=== PATIENT | female | born 1945 | race Caucasian/White ===

== ENCOUNTER → 2018-04-23 | Outpatient (CLI) | payer OTHER ==
[~2018-04-23] MED LIST: Aspirin 81 Mg Tablet Chew PO; Effient PO; FISH OIL 1,0001 EAC5 PO; LISINOPRIL5 MG PO; LIVALO4 MG PO; MUCINEX D TABL1 EAC1 PO; NASONEX17 GM NS; NEXIUM40 MG PO; NITROGLYCERIN0.4 MG SUBLING; PREDNISONE50 MG PO; VITAMIN D400 UNI1 PO; ZYRTEC10 M2 PO
== END ==
LOC: RAD 10:06
DX: J45.909 Unspecified asthma, uncomplicated (principal); R06.02 Shortness of breath

== ENCOUNTER → 2019-07-15 | Outpatient (CLI) | payer OTHER | LOC: SJCVC 14:31 | DX: I25.10 Atherosclerotic heart disease of native coronary artery without angina pectoris (principal); I10 Essential (primary) hypertension; E78.5 Hyperlipidemia, unspecified; I65.23 Occlusion and stenosis of bilateral carotid arteries; G47.33 Obstructive sleep apnea (adult) (pediatric); K21.9 Gastro-esophageal reflux disease without esophagitis; Z99.89 Dependence on other enabling machines and devices; Z79.899 Other long term (current) drug therapy ==

== ENCOUNTER → 2020-01-14 | Outpatient (CLI) | payer OTHER | LOC: SJCVCIMAG 09:07 | PROVIDERS: ATTEND Internal Medicine | DX: I65.23 Occlusion and stenosis of bilateral carotid arteries (principal); I25.10 Atherosclerotic heart disease of native coronary artery without angina pectoris; I10 Essential (primary) hypertension; K21.9 Gastro-esophageal reflux disease without esophagitis; E78.2 Mixed hyperlipidemia; G47.33 Obstructive sleep apnea (adult) (pediatric); Z99.89 Dependence on other enabling machines and devices; Z79.899 Other long term (current) drug therapy; Z79.82 Long term (current) use of aspirin ==

== ENCOUNTER 2020-07-21 10:25 | Emergency (ER) | payer OTHER, BC ==
[~2020-07-21] VITALS: Ht 154.9 cm; Wt 104.3 kg
[2020-07-21 10:42] LABS: ABSOLUTE NEUTROPHILS 7.5 thou/uL (1.4-8.2); BASOPHILS 0.4 % (0.0-2.0); EOSINOPHILS 1.3 % (0.0-3.0); HEMATOCRIT 39.5 % (37.0-47.0); LYMPHOCYTES 10.8 % (24.0-44.0); MCH 30.7 pg (26.0-34.0); MCHC 32.8 g/dL (28.0-37.0); MCV 93.8 fL (80.0-100.0); MONOCYTES 6.9 % (1.0-8.0); PLATELET COUNT 209 thou/uL (150-400); POLYS 80.6 % (36.0-66.0); RBC 4.22 mil/uL (4.20-5.00); RDW 14.5 % (10.5-14.5); WBC 9.3 thou/uL (4.0-11.0)
[2020-07-21 10:47] LABS: URINE BILIRUBIN NEGATIVE (Negative); URINE BLOOD 3+ (Negative); URINE CLARITY CLEAR; URINE COLOR YELLOW; URINE GLUCOSE-RANDOM* NEGATIVE (Negative); URINE KETONES NEGATIVE (Negative); URINE LEUKOCYTES-REFLEX NEGATIVE (Negative); URINE NITRITE-REFLEX NEGATIVE (Negative); URINE PROTEIN (DIPSTICK) 1+ (Negative); URINE SPECIFIC GRAVITY >= 1.030 (1.005-1.035)
[2020-07-21 10:51] LABS: ANION GAP 8 mmol/L (7-16); BUN 16 mg/dL (7-18); CALCIUM 8.9 mg/dL (8.5-10.1); CHLORIDE 107 mmol/L (98-107); CO2 28 mmol/L (21-32); GLUCOSE 145 mg/dL (74-106); POTASSIUM 3.8 mmol/L (3.5-5.1); SODIUM 143 mmol/L (136-145)
[2020-07-21 10:58] LABS: CASTS None Seen /LPF (None Seen); MUCUS >6 Heavy strn/LPF (None Seen); SQUAMOUS 0-3 Few /LPF (0-3)
[2020-07-21 10:59] LABS: BACTERIA-REFLEX 1-9 Few /HPF (None Seen); CRYSTALS None Seen /LPF (None Seen); URINE RBC 3-10 Few /HPF (0-2); URINE WBC-REFLEX 0-5 Rare /HPF (0-5)
[2020-07-21 11:02] LABS: ALBUMIN 3.3 g/dL (3.4-5.0); AMYLASE 47 U/L (25-115); DIRECT BILIRUBIN < 0.1 mg/dL (<0.1-0.2); LIPASE 89 U/L (73-393); SGOT 19 U/L (15-37); SGPT 26 U/L (14-59); TOTAL BILIRUBIN 0.4 mg/dL (0.2-1.0); TOTAL PROTEIN 6.5 g/dL (6.4-8.2); TROPONIN-I <0.06 ng/mL (<0.06)
[2020-07-21] MEDS ORDERED: ULTRAM 50MG TAB50 MG PO (12:10)
[2020-07-21] MEDS ORDERED: NAPROSYN500 MG PO (12:10)
[2020-07-21] MEDS ORDERED: KEFLEX500 M1 PO (12:10)
[2020-07-21] MEDS ORDERED: ZOFRAN ODT4 MG DISSOLVE (12:10)
[2020-07-21 12:26] VITALS: BP 119/72
== END 2020-07-21 12:33 | disposition home or self-care (01) ==
LOC: ER 10:25
PROVIDERS: Emergency Medicine
DX: N20.0 Calculus of kidney (principal); N39.0 Urinary tract infection, site not specified; K21.9 Gastro-esophageal reflux disease without esophagitis; I25.10 Atherosclerotic heart disease of native coronary artery without angina pectoris; Z79.82 Long term (current) use of aspirin; Z79.899 Other long term (current) drug therapy; Z88.5 Allergy status to narcotic agent; Z88.8 Allergy status to other drugs, medicaments and biological substances; Z88.2 Allergy status to sulfonamides; Z91.040 Latex allergy status; Z91.013 Allergy to seafood

== ENCOUNTER 2020-07-27 02:07 | Inpatient (IN) | payer OTHER, BC ==
[~2020-07-27] VITALS: Ht 152.4 cm; Wt 83.9 kg
--- NOTE | ~2020-07-27 | EMS ---
[address] [address] EMS Patient Care Report Name: KELLY MORENO Room #: REG KIM Wang#: [id number] Admission: 07/27/20 Attend Phys: Discharge: Date of : 45 Report #: [id number] THIS REPORT FOR: //name// Report Transmitted: 07/27/2020 03:17 EMS Care Summary [facility] Incident [id number] @ 07/27/2020 01:34 Incident Location [address] [place] [address] Patient KELLY MORENO Female, 75 Years 1945 Patient Address [address] [place] [address] Patient History Gastro-Esophageal Reflux Disease (GERD),Cardiac - Stent,Sleep Apnea, Patient Allergies Codeine, Patient Medications Unknown, Chief Complaint "My kidney hurts." Disposition Transported No Lights/Rogers Dispatch Reason Sick Person Transported To [facility] Narrative Upon arrival to scene we find pt ambulating towards EMS showing no outward signs of distress with no obvious ABC deficits. Pt reports that she has been experiencing pain in her right flank since approximately 2100 the night prior and has not received relief with prescribed pain medications. Pt reports to [address] [address] EMS Patient Care Report Name: KELLY MORENO Room #: REG Kathleen#: [id number] Admission: 07/27/20 Attend Phys: Discharge: Date of : 45 Report #: [id number] diagnosis of a kidney stone approximately one week prior with the same sensation. Pt was seen at [facility] for previous episode and discharged with a prescription for Tramadol which she took approximately 4 hours prior. Pt denies complaints of chest pain, difficulty breathing, N/V or fever. Pt denies all further recent illness/injury and denies contact with anyone known to be COVID-19 positive. Pt condition monitored throughout transport with minor relief or pain. [facility] notified via [employer] [place] with information only. Pt transported to [facility]. Pt taken to ER room 1 and self transferred to bed. Full verbal report given to staff. Pt's belongings left in room with pt. Initial Vitals @02:04P: 96,R: 20,BP: 149/82,Pain: 4/10,GCS: 15,SpO2: 94,Revised Trauma: 12, @01:48P: 101,R: 20,BP: 182/84,Pain: 10/10,GCS: 15,Temp: 98.4F,SpO2: 97,Revised Trauma: 12, Assessments @01:41MENTAL:Person Oriented,Time Oriented,Event Oriented,Place Oriented,SKIN:HEENT:Head/Face: No Abnormalities,Eyes: No Abnormalities,LUNG SOUNDS:ABDOMEN:PELVIS//GI:No Abnormalities,EXTREMITIES:Left Arm: No Abnormalities,Right Arm: No Abnormalities,Left Leg: No Abnormalities,Right Leg: No Abnormalities,PULSE:NEURO:No Abnormalities, Impression Kidney stones Procedures @01:58Saline Lock 10cc (20 ga) Site: Hand-LeftResponse: UnchangedSucceeded@02:00Fentanyl - 50 Micrograms (mcg) - Intravenous (IV)Response: Improved@01:47Surgical Mask on PatientResponse: Unchanged Timeline 01:33,Call Received 01:33,Psap Call 01:34,Dispatched 01:35,En Route 01:40,On Scene 01:41,At Patient 01:47,Surgical Mask on Patient,Response: Unchanged 01:47,Depart Scene 01:48,BP: 182/84 M,PULSE: 101,RR: 20 R,SPO2: 97 Ox,ETCO2: ,BG: ,PAIN: 10,GCS: 15, 01:58,Saline Lock 10cc 20 ga Site: Hand-Left,Response: UnchangedSucceeded, [address] [address] EMS Patient Care Report Name: KELLY MORENO Room #: REG KIM Wang#: [id number] Admission: 07/27/20 Attend Phys: Discharge: Date of : 45 Report #: [id number] 02:00,Fentanyl - 50 Micrograms (mcg) - Intravenous (IV),Response: Improved 02:04,At Destination 02:04,BP: 149/82 M,PULSE: 96,RR: 20 R,SPO2: 94 Ox,ETCO2: ,BG: ,PAIN: 4,GCS: 15, 02:16,Call Closed Disclaimer [email or web address] Copyright 2020 [employer] This EMS Care Summary contains data elements from the applicable legal record (which may be displayed differently). It is designed to provide pertinent information for the following purposes: continuity of care, clinical quality, and state data reporting. The complete legal record is available to ED staff and administrators of the receiving hospital in [employer]'s Patient Tracker. All data is provided "as is."
[~2020-07-27 02:07] MED LIST changes: +KEFLEX500 M1 PO; +NAPROSYN500 MG PO; +ULTRAM 50MG TAB50 MG PO; +ZOFRAN ODT4 MG DISSOLVE
[2020-07-27 02:08] VITALS: BP 140/52
[2020-07-27 02:40] LABS: ABSOLUTE NEUTROPHILS 8.2 thou/uL (1.4-8.2); BASOPHILS 0.4 % (0.0-2.0); EOSINOPHILS 1.7 % (0.0-3.0); HEMATOCRIT 40.8 % (37.0-47.0); HEMOGLOBIN 13.4 gm/dL (12.0-15.0); MCH 30.6 pg (26.0-34.0); MCHC 32.8 g/dL (28.0-37.0); MCV 93.3 fL (80.0-100.0); MONOCYTES 8.9 % (1.0-8.0); PLATELET COUNT 227 thou/uL (150-400); RBC 4.37 mil/uL (4.20-5.00); RDW 14.5 % (10.5-14.5); WBC 10.5 thou/uL (4.0-11.0)
[2020-07-27 02:40] LABS: URINE BILIRUBIN NEGATIVE (Negative); URINE BLOOD 2+ (Negative); URINE CLARITY CLEAR; URINE COLOR YELLOW; URINE GLUCOSE-RANDOM* NEGATIVE (Negative); URINE KETONES NEGATIVE (Negative); URINE LEUKOCYTES-REFLEX NEGATIVE (Negative); URINE NITRITE-REFLEX NEGATIVE (Negative); URINE PROTEIN (DIPSTICK) NEGATIVE (Negative); URINE SPECIFIC GRAVITY >= 1.030 (1.005-1.035); URINE UROBILINOGEN 0.2 E.U./dl (0.2-1.0)
[2020-07-27 02:44] LABS: ANION GAP 13 mmol/L (7-16); BUN 27 mg/dL (7-18); CALCIUM 8.9 mg/dL (8.5-10.1); CHLORIDE 102 mmol/L (98-107); CO2 23 mmol/L (21-32); CREATININE 1.6 mg/dL (0.6-1.0); GLUCOSE 149 mg/dL (74-106); POTASSIUM 4.2 mmol/L (3.5-5.1); SODIUM 138 mmol/L (136-145)
[2020-07-27 02:50] LABS: ALBUMIN 3.3 g/dL (3.4-5.0); DIRECT BILIRUBIN < 0.1 mg/dL (<0.1-0.2); SGOT 27 U/L (15-37); SGPT 32 U/L (30-65); TOTAL BILIRUBIN 0.4 mg/dL (0.2-1.0)
[2020-07-27 03:06] LABS: BACTERIA-REFLEX None Seen /HPF (None Seen); CASTS None Seen /LPF (None Seen); CRYSTALS None Seen /LPF (None Seen); MUCUS 0-3 Light strn/LPF (None Seen); SQUAMOUS None Seen /LPF (0-3); URINE RBC 0-2 Rare /HPF (0-2); URINE WBC-REFLEX None Seen /HPF (0-5)
[2020-07-27 04:25] VITALS: BP 145/69
[2020-07-27 04:28] VITALS: BP 145/69
[2020-07-27 12:18] VITALS: BP 136/65
[2020-07-27 12:50] VITALS: BP 144/57
== END 2020-07-27 12:57 | disposition home or self-care (01) | DRG 694 ==
LOC: ER 02:07 → EROBS 04:29
PROVIDERS: Emergency Medicine; ADMIT Hospitalist; ATTEND Hospitalist
PROC: 5A09357 Assistance with Respiratory Ventilation, Less than 24 Consecutive Hours, Continuous Positive Airway Pressure (ICD-10-PCS; principal; 2020-07-27)
DX: N13.2 Hydronephrosis with renal and ureteral calculous obstruction (principal); G47.33 Obstructive sleep apnea (adult) (pediatric); I25.10 Atherosclerotic heart disease of native coronary artery without angina pectoris; N17.9 Acute kidney failure, unspecified; E78.5 Hyperlipidemia, unspecified; K21.9 Gastro-esophageal reflux disease without esophagitis; Z79.899 Other long term (current) drug therapy; Z88.8 Allergy status to other drugs, medicaments and biological substances; Z91.040 Latex allergy status; Z88.5 Allergy status to narcotic agent; Z91.013 Allergy to seafood; Z95.5 Presence of coronary angioplasty implant and graft

== ENCOUNTER → 2020-08-09 | Outpatient (CLI) | payer OTHER, BC | LOC: SJCVC 13:15 | PROVIDERS: ATTEND Internal Medicine | DX: I25.10 Atherosclerotic heart disease of native coronary artery without angina pectoris (principal); E78.5 Hyperlipidemia, unspecified; I10 Essential (primary) hypertension; I65.23 Occlusion and stenosis of bilateral carotid arteries; K21.9 Gastro-esophageal reflux disease without esophagitis; G47.33 Obstructive sleep apnea (adult) (pediatric); E66.9 Obesity, unspecified; Z91.040 Latex allergy status; Z99.89 Dependence on other enabling machines and devices; Z98.61 Coronary angioplasty status; Z79.82 Long term (current) use of aspirin; Z79.899 Other long term (current) drug therapy; Z72.89 Other problems related to lifestyle; Z88.5 Allergy status to narcotic agent; Z88.1 Allergy status to other antibiotic agents; Z88.2 Allergy status to sulfonamides; Z88.8 Allergy status to other drugs, medicaments and biological substances ==

== ENCOUNTER → 2021-07-12 | Outpatient (CLI) | payer OTHER, BC | LOC: SJCVCIMAG 07-05 16:08 | PROVIDERS: ATTEND Internal Medicine | DX: I65.23 Occlusion and stenosis of bilateral carotid arteries (principal); I25.10 Atherosclerotic heart disease of native coronary artery without angina pectoris; E78.5 Hyperlipidemia, unspecified; I10 Essential (primary) hypertension; G47.33 Obstructive sleep apnea (adult) (pediatric); K21.9 Gastro-esophageal reflux disease without esophagitis; E78.2 Mixed hyperlipidemia; Z99.89 Dependence on other enabling machines and devices; Z72.89 Other problems related to lifestyle; Z79.82 Long term (current) use of aspirin; Z79.899 Other long term (current) drug therapy; Z88.2 Allergy status to sulfonamides; Z88.5 Allergy status to narcotic agent; Z88.8 Allergy status to other drugs, medicaments and biological substances; Z91.040 Latex allergy status; Z91.013 Allergy to seafood ==